=== PATIENT | female | born 1990 | race Asian ===

== ENCOUNTER 2018-09-10 19:43 | Emergency (ER) | payer MEDICAID ==
--- NOTE | 2018-09-10 20:19 | NUR ---
PT STATES SHE NO LONGER WANTS TO BE SEEN AND LEFT BEFORE TRIAGE.
== END 2018-09-10 20:21 | disposition left against medical advice (07) ==
LOC: ER 19:53
DX: Z53.21 Procedure and treatment not carried out due to patient leaving prior to being seen by health care provider (principal)